=== PATIENT | male | born 1970 | race Caucasian/White ===

== ENCOUNTER → 2020-08-20 13:33 | Outpatient (BNVA) | payer OTHER, SELFPAY | PROVIDERS: PCP Internal Medicine; Visit Provider Urology ==

== ENCOUNTER → 2020-11-20 12:52 | Outpatient (BNVA) | payer OTHER, SELFPAY | PROVIDERS: PCP Internal Medicine; Visit Provider Urology ==

== ENCOUNTER → 2021-02-13 13:05 | Outpatient (BNVA) | payer OTHER, SELFPAY | PROVIDERS: PCP Internal Medicine; Visit Provider Urology ==

== ENCOUNTER → 2022-10-01 13:52 | Outpatient (BNVA) | payer OTHER, SELFPAY | PROVIDERS: PCP Internal Medicine; Visit Provider Urology | DX: Z13.89 Encounter for screening for other disorder (principal) ==

== ENCOUNTER 2023-03-29 15:45 | Outpatient (AMB) | payer OTHER, SELFPAY ==
--- NOTE | 2023-03-29 15:47 | A.OFFVIS_ITS ---
Intake Intake Visit Reasons: 6m follow up(Erectile Dys) Intake Note: Patient is Present for Telephone Follow Up For Urology Med:Sildenafil, Tadalafil Antibiotic Allergy:None Blood Thinner: None Pharamcy: [employer] Allergies No Known Allergies Allergy (Verified 10/01/22 14:35) HPI HPI Comments History of Present Illness Details Price is a pleasant male. He is seen for the following urologic conditions - erectile dysfunction Six month review Continued reasonable response to 10 mg daily tadalafil with on demand sildenafil Prescription provided Does appear to have history of sleep apnea on discussion Should review with PCP for sleep test Erectile dysfunction Longstanding symptoms Previous use of single agent therapy with sildenafil 100 mg Sufficient response to combination therapy with daily tadalafil PSA 09/15 0.6 PFSH Medical History Hypogonadism in male Erectile dysfunction Review of Systems Const Denies chills and Denies fever(s) Card Reports no additional complaints and Denies syncope Resp Denies cough GI Denies abdominal pain and Denies heartburn Reports as per HPI and Denies change in libido Neuro Denies syncope Psych Denies change in libido Endo Denies change in libido Physical Exam Const General: cooperative, healthy appearing, comfortable and no acute distress Orientation/consciousness: patient oriented x3 HEENT Face and sinus: Yes normal facial exam Mouth: moist mucous membranes Neck Neck: Yes normal visual inspection, Yes full ROM and Yes trachea midline Chest Chest palpation & inspection: normal inspection of the chest Resp Effort & Inspection: normal respiratory effort, able to speak in complete sentences and no respiratory distress GI Inspection: Yes normal to inspection Back/Spine/Pelvis Cervical Spine: normal cervical lordosis Thoracic/Lumbar Spine: thoracic and lumbar spine normal to inspection Skin General skin exam: no rashes or lesions noted Neuro General: patient oriented x3, gait normal, tone normal and moves all extremities Extrem General: Yes normal to inspection and Yes capillary refill normal Assessment & Plan Assessment & Plan (1) Erectile dysfunction: Code(s): N52.9 - Male erectile dysfunction, unspecified Qualifiers: Erectile dysfunction type: vasculogenic Vasculogenic erectile dysfunction 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 No major barriers to patient understanding were identified. An opportunity to ask questions regarding the treatment plan was provided. All questions were answered. The patient expressed understanding and agreement with the above treatment plan. The patient is aware they should contact our office by phone for worsening of their current condition or the appearance of new urologic symptoms. Compliance is encouraged with any medications and followup testing that is ordered. It is a privilege to participate in the urologic care of your patient. If you have any questions or concerns regarding treatment for the above conditions, or other urologic issues, please do not hesitate to contact me. The office telephone contact is [phone]. This note is constructed using voice recognition software. While every effort has been made to ensure accuracy it risk analyst errors may have been included. Yours sincerely, Dr Mark Mendez MD, [facility] - Urology Providers of Expert, Compassionate Care for the Genitourinary System Telehealth Telehealth Location of provider rendering services: practice address Location of patient: address on file Patient Identification confirmed using: Name, : Yes Telehealth method: voice only Patient verbally consented to treatment: Yes Patient verbally consented to billing insurance company: Yes Patient informed of any privacy concerns related to visit: Yes Coding Level of Care Code Est Pt Level 3 (50404) Diagnoses Combined arterial insufficiency and corporo-venous occlusive erectile dysfunction N52.03 Erectile dysfunction type: vasculogenic Vasculogenic erectile dysfunction 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
== END 2023-03-30 15:24 | disposition home or self-care (01) ==
LOC: HO.HUSH 15:45
PROVIDERS: PCP Internal Medicine; Visit Provider Urology
DX: N52.03 Combined arterial insufficiency and corporo-venous occlusive erectile dysfunction (principal)
CPT/HCPCS: 99213

== ENCOUNTER → 2023-03-29 15:45 | Outpatient (BNVA) | payer OTHER, SELFPAY | PROVIDERS: PCP Internal Medicine; Visit Provider Urology ==

== ENCOUNTER 2023-09-28 13:43 | Outpatient (AMB) | payer OTHER, SELFPAY ==
--- NOTE | 2023-09-28 13:50 | A.OFFVIS_ITS ---
Intake Intake Visit Reasons: 6m follow up Intake Note: Patient presents today for a follow up on Erectile Dysfunction Meds- Sildenafil, Tadalafil Allergies to Antibiotic- No Known Allergies Blood Thinner- None Night Shift Manager Required: No Accompanied by: Self / Same As Patient Allergies No Known Allergies Allergy (Verified 09/28/23 13:53) Medication List - Last Reconciled 09/28/23 by Mark Mendez MD clotrimazole-betamethasone 1-0.05 % appl topical BID doxycycline monohydrate 100 mg PO BID lisinopril 20 mg PO DAILY losartan 50 mg PO DAILY methocarbamol 750 mg PO TID oxycodone 10 mg PO QID PRN sildenafil 100 mg PO DAILY PRN 30 days tadalafil 10 mg PO DAILY 90 days HPI HPI Comments History of Present Illness Details Price is a pleasant male. He is a patient of Dr. Russo. He is seen for the following urologic conditions - erectile dysfunction Six month review Continued reasonable response to 10 mg daily tadalafil with on demand sildenafil Prescription provided Prior discussion regarding sleep apnea - has daytime sleepiness, observed loud snoring, neck greater than 16 in Erectile dysfunction Longstanding symptoms Previous use of single agent therapy with sildenafil 100 mg Sufficient response to combination therapy with daily tadalafil PSA 09/15 0.6 PFSH Medical History Hypogonadism in male Erectile dysfunction Review of Systems Const Denies chills and Denies fever(s) Card Reports no additional complaints and Denies syncope Resp Denies cough GI Denies abdominal pain and Denies heartburn Reports as per HPI and Denies change in libido Neuro Denies syncope Psych Denies change in libido Endo Denies change in libido Physical Exam Const General: cooperative, healthy appearing, comfortable and no acute distress Orientation/consciousness: patient oriented x3 HEENT Face and sinus: Yes normal facial exam Mouth: moist mucous membranes Neck Neck: Yes normal visual inspection, Yes full ROM and Yes trachea midline Chest Chest palpation & inspection: normal inspection of the chest Resp Effort & Inspection: normal respiratory effort, able to speak in complete sent ences and no respiratory distress GI Inspection: Yes normal to inspection Back/Spine/Pelvis Cervical Spine: normal cervical lordosis Thoracic/Lumbar Spine: thoracic and lumbar spine normal to inspection Skin General skin exam: no rashes or lesions noted Neuro General: patient oriented x3, gait normal, tone normal and moves all extremities Extrem General: Yes normal to inspection and Yes capillary refill normal Assessment & Plan Assessment & Plan (1) Loud snoring: Code(s): R06.83 - Snoring (2) Daytime somnolence: Code(s): R40.0 - Somnolence (3) Erectile dysfunction: Code(s): N52.9 - Male erectile dysfunction, unspecified Qualifiers: Erectile dysfunction type: vasculogenic Vasculogenic erectile dysfunction 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 Qualified Code(s): N52.03 - Combined arterial insufficiency and corporo-venous occlusive erectile dysfunction Plan Refill prescription Home sleep study Orders: Orders RT home sleep study Today R40.0 - Somnolence Medications: Refilled tadalafil 10 mg PO DAILY 90 tabs 1RF sexual activity 90 days N52.01 - Erectile dysfunction due to arterial insufficiency sildenafil administer 60 minutes before intended activity 100 mg PO DAILY PRN 30 tabs 1RF sexual activity 30 days N52.9 - Male erectile dysfunction, unspecified Patient Instructions: Imaging studies, laboratory and physical exam results were discussed and reviewed in detail. No major barriers to patient understanding were identified. An opportunity to ask questions regarding the treatment plan was provided. All questions were answered. The patient expressed understanding and agreement with the above treatment plan. The patient is aware they should contact our office by phone for worsening of their current condition or the appearance of new urologic symptoms. Compliance is encouraged with any medications and followup testing that is ordered. It is a privilege to participate in the urologic care of your patient. If you have any questions or concerns regarding treatment for the above conditions, or other urologic issues, please do not hesitate to contact me. The office telephone contact is [phone]. This note is constructed using voice recognition software. While every effort has been made to ensure accuracy automotive refinish technician errors may have been included. Yours sincerely, Dr Mark Mendez MD, [facility] - Urology Providers of Expert, Compassionate Care for the Genitourinary System Coding Level of Care Code Est Pt Level 4 (47464) Diagnoses Loud snoring R06.83 Daytime somnolence R40.0 Combined arterial insufficiency and corporo-venous occlusive erectile dysfunction N52.03 Erectile dysfunction type: vasculogenic Vasculogenic erectile dysfunction 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
== END 2023-09-28 14:11 | disposition home or self-care (01) ==
PROVIDERS: PCP Internal Medicine; Visit Provider Urology
DX: R06.83 Snoring (principal); R40.0 Somnolence; N52.03 Combined arterial insufficiency and corporo-venous occlusive erectile dysfunction
CPT/HCPCS: 99213

== ENCOUNTER → 2023-09-28 13:43 | Outpatient (BNVA) | payer OTHER, SELFPAY | PROVIDERS: PCP Internal Medicine; Visit Provider Urology ==

== ENCOUNTER 2024-03-30 12:10 | Outpatient (AMB) | payer OTHER, SELFPAY ==
--- NOTE | 2024-03-30 12:10 | MHC.OFFVIS ---
Intake Visit Reasons: 6 month follow up Intake Note: Patient is Present for Telephone Follow Up Urology Med: Tadalafil, Sildenafil Antibiotic Allergy:None Blood Thinner:None Allergies No Known Allergies Allergy (Verified 03/30/24 12:11) Medication List - Last Reconciled 03/30/24 by Mark Mendez MD clotrimazole-betamethasone 1-0.05 % appl topical BID doxycycline monohydrate 100 mg PO BID lisinopril 20 mg PO DAILY losartan 50 mg PO DAILY methocarbamol 750 mg PO TID oxycodone 10 mg PO QID PRN sildenafil 100 mg PO DAILY PRN 30 days tadalafil 10 mg PO DAILY 90 days HPI Comments Details: Price is a pleasant male. He is a patient of Dr. Russo. He is seen for the following urologic conditions - erectile dysfunction Telemedicine Evaluation 15 min Consultation [employer] Video Six-month follow-up Continued reasonable response to 10 mg daily tadalafil with on demand sildenafil Prior discussion regarding sleep apnea - has daytime sleepiness, observed loud snoring, neck greater than 16 in - home sleep study Erectile dysfunction Longstanding symptoms Previous use of single agent therapy with sildenafil 100 mg Sufficient response to combination therapy with daily tadalafil PSA 09/15 0.6 PFSH Medical History Hypogonadism in male Erectile dysfunction Review of Systems Const All systems reviewed & are unremarkable except as noted in HPI and below Reports no additional complaints Resp Reports no additional complaints GI Reports no additional complaints Reports as per HPI Musc Reports no additional complaints Physical Exam Telemedicine evaluation Appropriate responses Regular breathing rate and rhythm HEENT Head: Yes normal to inspection Ears: hearing grossly normal bilaterally Eyes General: appearance normal, both eyes and all related structures Neck Neck: Yes normal visual inspection Chest Chest palpation & inspection: normal inspection of the chest Resp Effort & Inspection: normal respiratory effort and able to speak in complete sentences Telehealth Telehealth Telehealth Platform: [employer] Location of provider rendering services: practice address Location of patient: address on file Patient Identification confirmed using: Name, : Yes Telehealth method: video Patient verbally consented to treatment: Yes Patient verbally consented to billing insurance company: Yes Patient informed of any privacy concerns related to visit: Yes Minutes spent on Phone/Video with Pt.: 15 Assessment & Plan Assessment & Plan (1) Erectile dysfunction: Code(s): N52.9 - Male erectile dysfunction, unspecified Category: Medical Qualifiers: Erectile dysfunction type: vasculogenic Vasculogenic erectile dysfunction 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 Qualified Code(s): N52.03 - Combined arterial insufficiency and corporo-venous occlusive erectile dysfunction (2) Nocturia associated with benign prostatic hyperplasia: Code(s): N40.1 - Benign prostatic hyperplasia with lower urinary tract symptoms; R35.1 - Nocturia Category: Medical Plan Trial sildenafil Home sleep test Medications: Refilled sildenafil administer 60 minutes before intended activity 100 mg PO DAILY PRN 30 tabs 1RF sexual activity 30 days N52.9 - Male erectile dysfunction, unspecified tadalafil 10 mg PO DAILY 90 tabs 1RF sexual activity 90 days N52.01 - Erectile dysfunction due to arterial insufficiency Patient Instructions: \Imaging studies, laboratory and physical exam results were discussed and reviewed in detail. No major barriers to patient understanding were identified. An opportunity to ask questions regarding the treatment plan was provided. All questions were answered. The patient expressed understanding and agreement with the above treatment plan. The patient is aware they should contact our office by phone for worsening of their current condition or the appearance of new urologic symptoms. Compliance is encouraged with any medications and followup testing that is ordered. It is a privilege to participate in the urologic care of your patient. If you have any questions or concerns regarding treatment for the above conditions, or other urologic issues, please do not hesitate to contact me. The office telephone contact is [phone]. This note is constructed using voice recognition software. While every effort has been made to ensure accuracy user acceptance tester errors may have been included. 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
== END 2024-03-30 13:07 | disposition home or self-care (01) ==
LOC: HO.HUSH 12:10
PROVIDERS: PCP Internal Medicine; Visit Provider Urology
DX: N52.03 Combined arterial insufficiency and corporo-venous occlusive erectile dysfunction (principal); N40.1 Benign prostatic hyperplasia with lower urinary tract symptoms; R35.1 Nocturia
CPT/HCPCS: 99213

== ENCOUNTER → 2024-03-30 12:10 | Outpatient (BNVA) | payer OTHER, SELFPAY | PROVIDERS: PCP Internal Medicine; Visit Provider Urology ==

== ENCOUNTER 2024-09-28 13:38 | Outpatient (AMB) | payer OTHER, SELFPAY ==
--- NOTE | 2024-09-28 13:43 | MHC.OFFVIS ---
Intake Visit Reasons: 6m follow up Intake Note: Patient is Present for a 6 month Follow Up Urology Med: Tadalafil, Sildenafil Antibiotic Allergy:None Blood Thinner:None PVR:65ml Allergies No Known Allergies Allergy (Verified 09/28/24 14:06) HPI Comments Details: Price is a pleasant male. He is a patient of Dr. Russo. He is seen for the following urologic conditions - erectile dysfunction Six-month follow-up Continued partial response to 10 mg daily tadalafil with on demand sildenafil Long discussion regarding use of penile pump with for demonstration and constriction band Prior discussion regarding sleep apnea - has daytime sleepiness, observed loud snoring, neck greater than 16 in - home sleep study Erectile dysfunction Longstanding symptoms Previous use of single agent therapy with sildenafil 100 mg Sufficient response to combination therapy with daily tadalafil PSA 09/15 0.6 PFSH Medical History Hypogonadism in male Erectile dysfunction Review of Systems Const Denies chills and Denies fever(s) Card Reports no additional complaints and Denies syncope Resp Denies cough GI Denies abdominal pain and Denies heartburn Reports as per HPI and Denies change in libido Neuro Denies syncope Psych Denies change in libido Endo Denies change in libido Physical Exam Const General: cooperative, healthy appearing, comfortable and no acute distress Orientation/consciousness: patient oriented x3 HEENT Face and sinus: Yes normal facial exam Mouth: moist mucous membranes Neck Neck: Yes normal visual inspection, Yes full ROM and Yes trachea midline Chest Chest palpation & inspection: normal inspection of the chest Resp Effort & Inspection: normal respiratory effort, able to speak in complete sentences and no respiratory distress GI Inspection: Yes normal to inspection Back/Spine/Pelvis Cervical Spine: normal cervical lordosis Thoracic/Lumbar Spine: thoracic and lumbar spine normal to inspection Skin General skin exam: no rashes or lesions noted Neuro General: patient oriented x3, gait normal, tone normal and moves all extremities Extrem General: Yes normal to inspection and Yes capillary refill normal Assessment & Plan Assessment & Plan (1) Erectile dysfunction: Code(s): N52.9 - Male erectile dysfunction, unspecified Category: Medical Qualifiers: Erectile dysfunction type: vasculogenic 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 We discussed their affordability and effective use, stressing the importance of choosing the right tension ring size. We explored additional supportive therapies, such as penile prosthetics, while looking into lifestyle adjustments including weight loss, cessation of smoking, and cannabis reduction. We discussed new devices like the high-performance [employer] ring. We shall monitor the effectiveness of the current plan and adjust accordingly. Discussion Notes In our discussion, I informed the patient about the diagnosis of erectile dysfunction and the limited success with current oral medication regimens. We talked extensively about non-pharmaceutical interventions such as vacuum erection devices, manual being more controllable and cost-effective, and their 20% success rate with patients statistically. The [employer] ring was introduced as an additional aid for maintaining firmness during intercourse. Patients were briefed about surgical prosthetics as a more invasive option, which could be considered if less intrusive methods fail. I emphasized the significance of lifestyle modifications such as weight loss and smoking cessation. Informed consent was obtained for trialing the vacuum pump and using tension rings, with a thorough explanation of how to use them effectively to prevent adverse reactions and maximize benefit. We agreed on ongoing communication to evaluate the efficacy of the interventions and adjust the plan as needed. Patient Instructions - Continue taking 10 mg of tadalafil daily alongside current medications. - Use the manual vacuum erection device as discussed with the correct tension ring size. - Try the [employer] ring to aid in erectile function. - Lose weight to improve overall health and erectile function. - Quit smoking entirely; reduce any cannabis use. - Follow the instructions provided for the vacuum device and rings. - Monitor results and report any issues or ineffectiveness during follow-up. - Be aware of the option for penile prosthetics and consider if other measures fail. Medications: Refilled tadalafil 10 mg PO DAILY 90 days 90 tabs 1RF sexual activity N52.01 - Erectile dysfunction due to arterial insufficiency sildenafil administer 60 minutes before intended activity 100 mg PO DAILY 30 days PRN 30 tabs 1RF sexual activity N52.9 - Male erectile dysfunction, unspecified Patient Instructions: This note is constructed using voice recognition software. While every effort has been made to ensure accuracy communications professional errors may have been included. Imaging studies, laboratory and physical exam results were discussed and reviewed in detail. No major barriers to patient understanding were identified. An opportunity to ask questions regarding the treatment plan was provided. All questions were answered. The patient expressed understanding and agreement with the above treatment plan. The patient is aware they should contact our office by phone for worsening of their current condition or the appearance of new urologic symptoms. Compliance is encouraged with any medications and followup testing that is ordered. It is a privilege to participate in the urologic care of your patient. If you have any questions or concerns regarding treatment for the above conditions, or other urologic issues, please do not hesitate to contact me. The office telephone contact is [phone]. Sincerely, Dr Mrak Mendez MD, [facility] - Urology Compassionate Specialist Care for the Genitourinary System Coding Level of Care Code Est Pt Level 4 (12245) Diagnoses Combined arterial insufficiency and corporo-venous occlusive erectile dysfunction N52.03 Erectile dysfunction type: vasculogenic Vasculogenic erectile dysfunction 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
--- OUTSIDE RECORDS SUMMARY | 2024-09-28 15:28 | XMS_ITS | Clinical Summary ---
Author Organization [facility] Address [address] [place] [address] Care Team Providers Care Black Leather Trimmer Name Role Phone Davin Russo MD Primary Care Provider [phone] Allergies Active Allergy Reactions Criticality Noted Date Comments Bee Sting 10/14/2020 Medications Medication Sig Dispensed Refills Start Date End Date Status minocycline 100 MG capsule Take 100 mg by mouth 2 (two) times a day. 0 Active cyclobenzaprine (FLEXERIL) 10 MG tablet Take 10 mg by mouth 3 (three) times a day as needed for muscle spasms. 0 Active vardenafil (LEVITRA) 20 MG tablet Take 20 mg by mouth daily as needed for erectile dysfunction. 0 Active methocarbamol (ROBAXIN) 750 MG tablet Take 750 mg by mouth 3 (three) times a day. 0 Active doxycycline (VIBRA-TABS) 100 MG tablet Take 100 mg by mouth 2 (two) times a day. 0 Active lisinopril (PRINIVIL,ZESTRIL) tablet 20 mg Take 20 mg by mouth daily. 0 Active oxyCODONE HCl (ROXICODONE) 10 MG TABS Take 10 mg by mouth every 4 (four) hours as needed for pain. 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, r ecurrent severe without psychotic features 07/14/2015 Anxiety 11/01/2014 Bee sting allergy 10/09/2010 Elevated liver enzymes 10/09/2010 Erectile dysfunction 10/09/2010 Migraine 10/09/2010 Social History Tobacco Use Types Packs/Day Years Used Date Smoking Tobacco: Former Smokeless Tobacco: Never Alcohol Use Standard Drinks/Week Comments Yes 0 (1 standard drink = 0.6 oz pur e alcohol) Sex and Gender Information Value Date Recorded Sex Assigned at Not on file Gender Identity Not on file Sexual Orientation Not on file Job Start Date Occupation Industry Not on file Not on file Not on file Last Filed Vital Signs Vital Sign Reading Time Taken Comments Blood Pressure 151/90 10/20/2020 1:23 PM EDT Pulse 100 10/20/2020 1:23 PM EDT Temperature 36.2 ??C (97.1 ??F) 10/20/2020 1:23 PM ED T Respiratory Rate - - Oxygen Saturation 97% 10/20/2020 1:23 PM EDT Inhaled Oxygen Concentration - - Weight 120.2 kg (265 lb) 10/20/2020 1:23 PM EDT Height 182.9 cm (6') 10/20/2020 1:23 PM EDT Body Mass Index 35.94 10/20/2020 1:23 PM EDT Plan of Treatment Health Maintenance Due Date Last Done Comments Hepatitis B Vaccines (1 of 3 - 3-dose series) 1969 Hepatitis C Screening 1969 COVID-19 Vaccine (#1) 06/19/1970 Depression Screening 1981 Preventative Health Evaluation 12/19/1987 Colon Cancer Screening (Colonoscopy) 2014 Shingrix-Zoster Vaccine (1 of 2) 12/19/2019 DTap / Tdap / Td (2 - Td or Tdap) 09/11/2020 09/11/2010 Influenza Vaccine (#1) 2024 0, 03/01/2019, 03/03/2018, Additional history exists Pneumococcal Vaccine Aged Out No long er eligible based on patient's age to complete this topic RSV Ped < 20 months Aged Out No longe r eligible based on patient's age to complete this topic Care Teams Black Leather Trimmer Relationship Specialty Start Date End Date Davin Russo MD PCP - General Internal Medicine 09/19/20
== END 2024-09-28 14:32 | disposition home or self-care (01) ==
LOC: HO.HUSH 13:39
PROVIDERS: PCP Internal Medicine; Visit Provider Urology
DX: N52.03 Combined arterial insufficiency and corporo-venous occlusive erectile dysfunction (principal); Z13.9 Encounter for screening, unspecified
CPT/HCPCS: 99214

== ENCOUNTER → 2024-09-28 13:38 | Outpatient (BNVA) | payer OTHER, SELFPAY | PROVIDERS: PCP Internal Medicine; Visit Provider Urology | DX: N52.03 Combined arterial insufficiency and corporo-venous occlusive erectile dysfunction (principal) | CPT/HCPCS: 51798; 81003 ==

== ENCOUNTER 2025-05-16 10:52 | Outpatient (AMB) | payer OTHER, SELFPAY ==
--- NOTE | 2025-05-16 10:57 | MHC.OFFVIS ---
Intake Visit Reasons: 6M follow up Intake Note: Patient is Present for a 6 month Follow Up patient is not happy with medication outcome Urology Med: Tadalafil, Sildenafil Antibiotic Allergy:None Blood Thinner:None LAST PVR:65ml Accompanied by: Self / Same As Patient Allergies No Known Allergies Allergy (Verified 05/16/25 10:59) HPI Comments Details: Price is a pleasant male. He is a patient of Dr. Russo. He is seen for the following urologic conditions - erectile dysfunction - low libido Six-month follow-up Tried maximum dosing of daily tadalafil on demand sildenafil Minimal effect Discussed use of injectables Does not get nocturnal erections Decline in libido Check testosterone and repeat in 2 weeks Long discussion regarding use of penile pump with for demonstration and constriction band Prior discussion regarding sleep apnea - has daytime sleepiness, observed loud snoring, neck greater than 16 in - home sleep study Erectile dysfunction Longstanding symptoms Previous use of single agent therapy with sildenafil 100 mg Sufficient response to combination therapy with daily tadalafil PSA 09/15 0.6 PFSH Medical History (Updated 05/16/25 @ 11:27 by Mark Mendez MD) Hypogonadism in male Erectile dysfunction Review of Systems Const Denies chills and Denies fever(s) Card Reports no additional complaints and Denies syncope Resp Denies cough GI Denies abdominal pain and Denies heartburn Reports as per HPI and Denies change in libido Neuro Denies syncope Psych Denies change in libido Endo Denies change in libido Physical Exam Const General: cooperative, healthy appearing, comfortable and no acute distress Orientation/consciousness: patient oriented x3 HEENT Face and sinus: Yes normal facial exam Mouth: moist mucous membranes Neck Neck: Yes normal visual inspection, Yes full ROM and Yes trachea midline Chest Chest palpation & inspection: normal inspection of the chest Resp Effort & Inspection: normal respiratory effort, able to speak in complete sentences and no respiratory distress GI Inspection: Yes normal to inspection Back/Spine/Pelvis Cervical Spine: normal cervical lordosis Thoracic/Lumbar Spine: thoracic and lumbar spine normal to inspection Skin General skin exam: no rashes or lesions noted Neuro General: patient oriented x3, gait normal, tone normal and moves all extremities Extrem General: Yes normal to inspection and Yes capillary refill normal Assessment & Plan Assessment & Plan (1) Hypogonadism in male: Code(s): E29.1 - Testicular hypofunction Category: Medical Plan Baseline T lab evaluation Orders: Orders Testosterone, Free/Total Today E29.1 - Testicular hypofunction Estrad Free (Tot Ultra + Free) Today E29.1 - Testicular hypofunction Testosterone, Total 2 Weeks E29.1 - Testicular hypofunction Lutenizing Hormone Today E29.1 - Testicular hypofunction PSA,Total (Free>4and<10) Today E29.1 - Testicular hypofunction Patient Instructions: This note is constructed using voice recognition software. While every effort has been made to ensure accuracy homeland security program specialist errors may have been included. Imaging studies, laboratory and physical exam results were discussed and reviewed in detail. No major barriers to patient understanding were identified. An opportunity to ask questions regarding the treatment plan was provided. All questions were answered. The patient expressed understanding and agreement with the above treatment plan. The patient is aware they should contact our office by phone for worsening of their current condition or the appearance of new urologic symptoms. Compliance is encouraged with any medications and followup testing that is ordered. It is a privilege to participate in the urologic care of your patient. If you have any questions or concerns regarding treatment for the above conditions, or other urologic issues, please do not hesitate to contact me. The office telephone contact is [phone]. Sincerely, Dr Mark Mendez MD, [facility] - Urology Compassionate Specialist Care for the Genitourinary System Coding Level of Care Code Est Pt Level 3 (86112) Complex EM visit Add On G2211 Diagnoses Hypogonadism in male E29.1
--- OUTSIDE RECORDS SUMMARY | 2025-05-16 16:26 | XMS_ITS ---
Author Name [facility] Organization Unknown Care Team Organization Name Specialty Phone Email Start Date End Da te [facility] Davin Russo Primary Care 05/04/2022 02/13/20 24
--- OUTSIDE RECORDS SUMMARY | 2025-05-16 16:26 | XMS_ITS | Clinical Summary ---
Author Organization [facility] Address [address] [place] [address] Care Team Providers Care White Kid Buffer Name Role Phone Davin Russo MD Primary Care Provider [phone] Allergies Active Allergy Reactions Criticality Noted Date [...] 100 10/20/2020 1:23 PM EDT Temperature 36.2 C (97.1 F) 10/20/2020 1:23 PM EDT Respiratory Rate - - Oxygen Saturation 97% [...] or Tdap) 09/11/2020 09/11/2010 Influenza Vaccine (#1) 2025 0, 03/01/2019, 03/03/2018, Additional history exists Pneumococcal Vaccine Aged Out No long er eligible based on patient's age to complete this topic RSV Ped < 20 months Aged Out No longe r eligible based on patient's age to complete this topic Care Teams White Kid Buffer Relationship Specialty Start Date End Date Davin Russo MD PCP - General Internal Medicine 3/26/21
== END 2025-05-16 11:33 | disposition home or self-care (01) ==
LOC: HO.HUSH 10:52
PROVIDERS: PCP Internal Medicine; Visit Provider Urology
DX: E29.1 Testicular hypofunction (principal)
CPT/HCPCS: 99213; G2211

== ENCOUNTER 2025-05-16 11:47 | Outpatient (REF) | payer OTHER, SELFPAY ==
[2025-05-16 14:12] LABS: PSA,Total (Free>4and<10) 1.12 ng/mL (0.00-4.00)
[2025-05-22 20:28] LABS: Testosterone, Free 65.3 pg/mL (35.0-155.0)
== END 2025-05-16 11:48 | disposition home or self-care (01) ==
LOC: HO.10HDL 11:47
PROVIDERS: Visit Provider Urology
DX: Z12.5 Encounter for screening for malignant neoplasm of prostate (principal); E29.1 Testicular hypofunction
CPT/HCPCS: 36415; 82670; 82681; 83002; 84153; 84402; 84403

== ENCOUNTER 2025-05-31 09:19 | Outpatient (REF) | payer OTHER, SELFPAY | END 2025-05-31 09:20 | disposition home or self-care (01) | LOC: HO.10HDL 09:19 | PROVIDERS: Visit Provider Urology | DX: E29.1 Testicular hypofunction (principal) | CPT/HCPCS: 36415; 84403 ==

== ENCOUNTER 2025-06-13 10:50 | Outpatient (AMB) | payer OTHER, SELFPAY ==
--- NOTE | 2025-06-13 10:55 | A.OFFVIS_ITS ---
Intake Visit Reasons: 4w/labs SET (NOua) Intake Note: Reason for Visit: Labs Follow Up Urology Meds: Sildenafil, Tadalafil Blood Thinners: None Labs: 05/31/2025- Total Testo: 650 05/16/25- Total Testo: 563 Free Testo: 65.3 LH: 3.2 Total PSA: 1.12 Imaging: None Last PVR: None Professor Of Business Required: No Accompanied by: Self / Same As Patient Allergies No Known Allergies Allergy (Verified 06/13/25 10:58) HPI Comments Details: Price is a pleasant male. He is a patient of Dr. Russo. He is seen for the following urologic conditions - erectile dysfunction - low libido Follow-up lab work Testosterone normal on 2 separate occasions Erection activity highly likely to be vascular related Long discussion regarding use of penile pump with for demonstration and constriction band Also demonstration of penile prosthetic Prior discussion regarding sleep apnea - has daytime sleepiness, observed loud snoring, neck greater than 16 in - home sleep study Hypogonadism Labs 05/21 563 T 32 LH 3.2, 06/20 650 Erectile dysfunction Longstanding symptoms Previous use of single agent therapy with sildenafil 100 mg Sufficient response to combination therapy with daily tadalafil PSA 09/15 0.6 PFSH Medical History Hypogonadism in male Erectile dysfunction Review of Systems Const Denies chills and Denies fever(s) Card Reports no additional complaints and Denies syncope Resp Denies cough GI Denies abdominal pain and Denies heartburn Reports as per HPI and Denies change in libido Neuro Denies syncope Psych Denies change in libido Endo Denies change in libido Physical Exam Const General: cooperative, healthy appearing, comfortable and no acute distress Orientation/consciousness: patient oriented x3 HEENT Face and sinus: Yes normal facial exam Mouth: moist mucous membranes Neck Neck: Yes normal visual inspection, Yes full ROM and Yes trachea midline Chest Chest palpation & inspection: normal inspection of the chest Resp Effort & Inspection: normal respiratory effort, able to speak in complete sentences and no respiratory distress GI Inspection: Yes normal to inspection Back/Spine/Pelvis Cervical Spine: normal cervical lordosis Thoracic/Lumbar Spine: thoracic and lumbar spine normal to inspection Skin General skin exam: no rashes or lesions noted Neuro General: patient oriented x3, gait normal, tone normal and moves all extremities Extrem General: Yes normal to inspection and Yes capillary refill normal Assessment & Plan Assessment & Plan (1) Erectile dysfunction: Code(s): N52.9 - Male erectile dysfunction, unspecified Category: Medical Qualifiers: Erectile dysfunction type: vasculogenic Vasculogenic erectile dysfunction 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 While every effort has been made to ensure accuracy forest fire officer errors may have been included. Imaging studies, laboratory and physical exam results were discussed and reviewed in detail. No major barriers to patient understanding were identified. An opportunity to ask questions regarding the treatment plan was provided. All questions were answered. The patient expressed understanding and agreement with the above treatment plan. The patient is aware they should contact our office by phone for worsening of their current condition or the appearance of new urologic symptoms. Compliance is encouraged with any medications and followup testing that is ordered. It is a privilege to participate in the urologic care of your patient. If you have any questions or concerns regarding treatment for the above conditions, or other urologic issues, please do not hesitate to contact me. The office telephone contact is [phone]. 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
--- OUTSIDE RECORDS SUMMARY | 2025-06-13 13:56 | XMS_ITS | Clinical Summary ---
Author Organization [facility] Prior to 11/24/24 Address [address] [place] [address] Care Team Providers Care Alumni Relations Officer Name Role Phone Davin Russo MD Primary Care Provider [phone] Allergies Active Allergy Reactions Criticality Noted Date [...] age to complete this topic Care Teams Alumni Relations Officer Relationship Specialty Start Date End Date Davin Russo MD PCP - General Internal Medicine 09/19/20
== END 2025-06-13 11:27 | disposition home or self-care (01) ==
LOC: HO.HUSH 10:51
PROVIDERS: PCP Internal Medicine; Visit Provider Urology
DX: N52.03 Combined arterial insufficiency and corporo-venous occlusive erectile dysfunction (principal); N40.1 Benign prostatic hyperplasia with lower urinary tract symptoms; R35.1 Nocturia
CPT/HCPCS: 99213; G2211